=== PATIENT | female | born 1980 | race Caucasian/White ===

== ENCOUNTER 2023-09-02 14:13 | Outpatient (REF) | payer SELFPAY ==
[2023-09-02 16:45] LABS: HCG Quantitative 1148 mIU/mL
== END 2023-09-02 14:14 | disposition home or self-care (01) ==
LOC: HO.HHCL 14:13
PROVIDERS: Visit Provider Advanced Practice Midwife
DX: N92.6 Irregular menstruation, unspecified (principal)
CPT/HCPCS: 36415; 84702

== ENCOUNTER 2023-09-04 09:31 | Outpatient (REF) | payer SELFPAY ==
[2023-09-04 11:40] LABS: HCG Quantitative 395 mIU/mL
== END 2023-09-04 09:32 | disposition home or self-care (01) ==
LOC: HO.HHCL 09:31
PROVIDERS: Visit Provider Advanced Practice Midwife
DX: N92.6 Irregular menstruation, unspecified (principal)
CPT/HCPCS: 36415; 84702

== ENCOUNTER 2023-09-07 11:52 | Outpatient (REF) | payer SELFPAY ==
[2023-09-07 13:43] LABS: HCG Quantitative 98 mIU/mL
== END 2023-09-07 11:53 | disposition home or self-care (01) ==
LOC: HO.HHCL 11:52
PROVIDERS: Visit Provider Advanced Practice Midwife
DX: Z13.89 Encounter for screening for other disorder (principal)
CPT/HCPCS: 36415; 84702

== ENCOUNTER 2023-09-14 09:00 | Outpatient (REF) | payer SELFPAY ==
[2023-09-14 11:57] LABS: HCG Quantitative 14 mIU/mL
== END 2023-09-14 09:01 | disposition home or self-care (01) ==
LOC: HO.HHCL 09:00
PROVIDERS: Visit Provider Psychiatry & Neurology Neurology
DX: Z00.00 Encounter for general adult medical examination without abnormal findings (principal)
CPT/HCPCS: 36415; 84702